=== PATIENT | male | born 1995 | race Caucasian/White ===

== ENCOUNTER 2025-03-25 16:41 | Inpatient (IN) | payer OTHER ==
[~2025-03-25] VITALS: Ht 182.9 cm; Wt 81.8 kg
[2025-03-25 21:29] LABS: PLATELET COUNT (AUTO) 200 K/uL (150-450); RED BLOOD CELL COUNT(AUTO) 4.59 MIL/uL (4.50-5.90); RED CELL DISTRIBUTION WIDTH 12.6 % (11.5-14.5); WHITE BLOOD COUNT (AUTO) 8.0 K/uL (4.5-11.0)
[2025-03-25 21:40] LABS: SODIUM SERUM 141 mmol/L (136-145)
[2025-03-25 21:41] LABS: CALCIUM, TOTAL 8.9 mg/dL (8.8-10.5); CREATININE 0.80 mg/dL (0.60-1.30); GLOMERULAR FILTR. RATE CALC > 60 mL/min (>60); GLUCOSE,RANDOM 88 mg/dL (70-110); UREA NITROGEN, BLOOD 11 mg/dL (7-18)
[2025-03-25 21:45] LABS: ASPARTATE AMINOTRANSFERASE 8.0 U/L (15-37); TOTAL PROTEIN, SERUM 6.2 g/dL (6.4-8.2)
[2025-03-26 01:10] LABS: COVID AG,FIA SOURCE NASAL SWAB
[2025-03-26 01:25] LABS: SARS-COV2 (COVID) ANTIGEN,FIA Negative (Negative)
[2025-03-26 05:26] VITALS: BP 98/61; PULSE 39; RESP 18; TEMP 97.7; O2SAT 100
[2025-03-26 06:00] VITALS: PULSE 42
[2025-03-26 07:53] VITALS: BP 96/64; PULSE 48; RESP 18; TEMP 97.8; O2SAT 100
[2025-03-26] MEDS ORDERED: BISACODYL 10 MG RECTAL RECTAL SUPPOSITORY PR PRN (08:00)
[2025-03-26] MEDS ORDERED: IPRATROPIUM BROMIDE 0.5 MG/2.5 ML NEB SOLUTION NEB PRN (08:00)
[2025-03-26] MEDS ORDERED: MAGNESIUM HYDROXIDE SUSPENSION 30 ML UDCUP PO PRN (08:00)
[2025-03-26] MEDS ORDERED: ZOLPIDEM TARTRATE 5 MG TABLET PO PRN (08:00)
[2025-03-26] MEDS ORDERED: ONDANSETRON HCL 4 MG/2 ML VIAL IVP PRN (08:00)
[2025-03-26] MEDS ORDERED: ALBUTEROL SULFATE 2.5 MG/0.5 ML NEB SOLUTION NEB PRN (08:00)
[2025-03-26] MEDS: HEPARIN SODIUM,PORCINE 5,000 UNITS/ML VIAL SQ SCH (08:28)
[2025-03-26] MEDS: PANTOPRAZOLE SODIUM 40 MG DR TABLET PO SCH (08:28)
[2025-03-26 09:37] LABS: APPEARANCE,URINE CLEAR (CLEAR); GLUCOSE, URINE (UA) NEGATIVE (NEGATIVE); LEUKOCYTE ESTERASE ,URINE NEGATIVE (NEGATIVE); NITRATE,URINE NEGATIVE (NEGATIVE); OCCULT BLOOD,URINE NEGATIVE (NEGATIVE); SPECIFIC GRAVITIY, URINE 1.016 (1.003-1.030)
[2025-03-26 10:15] VITALS: PULSE 55; RESP 18; O2SAT 99
[2025-03-26] MEDS ORDERED: SODIUM CHLORIDE 3% 15 ML NEB SOLUTION NEB ONE ×2 (10:36→20:52)
[2025-03-26 12:55] LABS: MTB PCR w/Rif. Resistance-SPUT NOT DETECTED (Not Detectd)
[2025-03-26 14:14] LABS: MTB PCR w/Rif. Resistance-SPUT NOT DETECTED (Not Detectd)
[2025-03-26 15:30] VITALS: BP 99/62; PULSE 81; RESP 19; TEMP 97.9; O2SAT 100
[2025-03-26 19:48] VITALS: BP 104/59; PULSE 48; RESP 18; TEMP 98.2; O2SAT 98
[2025-03-26] MEDS: ACETAMINOPHEN 325 MG TABLET PO PRN (20:32)
[2025-03-27 04:57] VITALS: BP 94/59; PULSE 46; RESP 18; TEMP 97.7; O2SAT 99
[2025-03-27 08:30] VITALS: BP 95/54; PULSE 56; RESP 18; O2SAT 100
[2025-03-27] MEDS: SODIUM CHLORIDE 0.9% 1,000 ML IV ONE (12:17)
[2025-03-27 18:05] VITALS: BP 112/64; PULSE 47; RESP 18; TEMP 98.1; O2SAT 99
[2025-03-27 19:35] VITALS: BP 103/57; PULSE 53; RESP 18; TEMP 98.1; O2SAT 99
[2025-03-28 04:20] VITALS: BP 101/58; PULSE 53; RESP 18; TEMP 97.7; O2SAT 100
[2025-03-28 08:10] VITALS: BP 106/57; PULSE 41; RESP 18; TEMP 98.2; O2SAT 100
[2025-03-28 20:55] VITALS: BP 103/60; PULSE 55; RESP 18; TEMP 98.1; O2SAT 99
[2025-03-29 04:00] VITALS: BP 104/65; PULSE 52; RESP 18; TEMP 97.5; O2SAT 100
[2025-03-29 08:15] VITALS: BP 102/71; PULSE 48; RESP 18; TEMP 97.3; O2SAT 99
[2025-03-29 10:06] LABS: QUANTIFERON+, Nil Value 0.08 IU/mL; QUANTIFERON+,Mitogen Value >10.00 IU/mL; QUANTIFERON+,TB1 Antigen Value 0.41 IU/mL; QUANTIFERON+,TB2 Antigen Value 0.56 IU/mL; QUANTIFERON, TB GOLD PLUS Positive (Negative)
[2025-03-29 17:05] VITALS: BP 112/68; PULSE 61; RESP 18; TEMP 97.7
[2025-03-29 19:38] VITALS: BP 96/74; PULSE 59; RESP 18; TEMP 98.2; O2SAT 100
[2025-03-30 05:52] VITALS: BP 97/60; PULSE 45; RESP 18; TEMP 98.1; O2SAT 97
[2025-03-30 08:17] VITALS: BP 101/67; PULSE 56; RESP 18; TEMP 97.5; O2SAT 98
[2025-03-30 15:44] VITALS: BP 102/55; PULSE 52; RESP 18; TEMP 97.7; O2SAT 96
[2025-03-30 19:44] VITALS: BP 114/54; PULSE 60; RESP 18; TEMP 97.5; O2SAT 98
[2025-03-31 04:07] VITALS: BP 98/58; PULSE 46; RESP 18; TEMP 97.9; O2SAT 99
[2025-03-31 09:00] VITALS: BP 100/58; PULSE 53; RESP 18; TEMP 97.7; O2SAT 100
[2025-03-31 20:23] VITALS: BP 101/53; PULSE 59; RESP 18; TEMP 97.5; O2SAT 100
[2025-04-01 04:33] VITALS: BP 99/56; PULSE 53; RESP 16; TEMP 98; O2SAT 100
[2025-04-01 08:00] VITALS: BP 106/61; PULSE 45; RESP 16; TEMP 97.2; O2SAT 100
[2025-04-01 20:02] VITALS: BP 106/58; PULSE 55; RESP 18; TEMP 98.8; O2SAT 100
[2025-04-02 04:52] VITALS: BP 109/58; PULSE 45; RESP 18; TEMP 98.6; O2SAT 100
[2025-04-02 08:02] VITALS: BP 102/64; PULSE 53; RESP 18; TEMP 98.4; O2SAT 100
[2025-04-02 08:53] LABS: PLATELET COUNT (AUTO) 176 K/uL (150-450); RED BLOOD CELL COUNT(AUTO) 4.86 MIL/uL (4.50-5.90); RED CELL DISTRIBUTION WIDTH 12.7 % (11.5-14.5); WHITE BLOOD COUNT (AUTO) 5.1 K/uL (4.5-11.0)
[2025-04-02 09:12] LABS: ASPARTATE AMINOTRANSFERASE 9 U/L (15-37); CALCIUM, TOTAL 8.9 mg/dL (8.8-10.5); CREATININE 0.81 mg/dL (0.60-1.30); GLOMERULAR FILTR. RATE CALC > 60 mL/min (>60); GLUCOSE,RANDOM 115 mg/dL (70-110); SODIUM SERUM 141 mmol/L (136-145); TOTAL PROTEIN, SERUM 6.6 g/dL (6.4-8.2); UREA NITROGEN, BLOOD 13 mg/dL (7-18)
[2025-04-02] MEDS: PYRAZINAMIDE 500 MG TABLET PO SCH (10:17)
[2025-04-02] MEDS: PYRIDOXINE HCL 50 MG TABLET PO SCH (10:17)
[2025-04-02] MEDS: ETHAMBUTOL HCL 400 MG TABLET PO SCH (10:17)
[2025-04-02] MEDS: ISONIAZID 300 MG TABLET PO SCH (10:17)
[2025-04-02 20:04] VITALS: BP 100/60; PULSE 59; RESP 18; TEMP 98.1; O2SAT 100
[2025-04-03 04:07] LABS: HEPATITIS B CORE IGM Negative (Negative); HEPATITIS C AB (EIA) Non Reactive (Non Reactive)
[2025-04-03 05:25] VITALS: BP 108/57; PULSE 57; RESP 18; TEMP 98.1; O2SAT 99
[2025-04-03 08:00] VITALS: BP 110/62; PULSE 55; RESP 19; TEMP 97.3; O2SAT 100
[2025-04-03 19:34] VITALS: BP 129/72; PULSE 60; RESP 18; TEMP 97.3; O2SAT 97
[2025-04-04 05:51] VITALS: BP 110/60; PULSE 75; RESP 18; TEMP 97.9; O2SAT 100
[2025-04-04 07:45] VITALS: BP 98/62; PULSE 51; RESP 18; TEMP 97.7; O2SAT 99
[2025-04-04 19:28] VITALS: BP 109/66; PULSE 63; RESP 18; TEMP 98.1; O2SAT 98
[2025-04-05 04:32] VITALS: BP 104/74; PULSE 67; RESP 18; TEMP 97.9; O2SAT 97
[2025-04-05 07:20] VITALS: BP 109/71; PULSE 64; RESP 18; TEMP 97.3; O2SAT 100
[2025-04-05 20:10] VITALS: BP 108/59; PULSE 55; RESP 18; TEMP 97.8; O2SAT 98
[2025-04-06 05:16] VITALS: BP 111/66; PULSE 56; RESP 18; TEMP 97.5; O2SAT 98
[2025-04-06 08:16] VITALS: BP 107/64; PULSE 52; RESP 18; TEMP 98.1; O2SAT 98
[2025-04-06 12:01] LABS: PLATELET COUNT (AUTO) 213 K/uL (150-450); RED BLOOD CELL COUNT(AUTO) 5.05 MIL/uL (4.50-5.90); RED CELL DISTRIBUTION WIDTH 12.8 % (11.5-14.5); WHITE BLOOD COUNT (AUTO) 6.6 K/uL (4.5-11.0)
[2025-04-06 12:13] LABS: ASPARTATE AMINOTRANSFERASE 11 U/L (15-37); CALCIUM, TOTAL 8.7 mg/dL (8.8-10.5); CREATININE 0.80 mg/dL (0.60-1.30); GLOMERULAR FILTR. RATE CALC > 60 mL/min (>60); GLUCOSE,RANDOM 84 mg/dL (70-110); SODIUM SERUM 143 mmol/L (136-145); TOTAL PROTEIN, SERUM 6.8 g/dL (6.4-8.2); UREA NITROGEN, BLOOD 13 mg/dL (7-18)
[2025-04-07 13:07] LABS: COCCIDIOIDES BY CF(UCDAVIS) Negative; COCCIDIOIDES IMMUNODIF-UCDAVIS Negative
== END 2025-04-06 20:30 | DRG 179 ==
LOC: EMS 16:41 → EDH 03-26 02:56 → UNDOADMIN 03-26 03:14 → 6N 03-26 05:16 → EDH 03-26 05:16
PROVIDERS: ADMIT Hospitalist; ATTEND Hospitalist
DX: A15.0 Tuberculosis of lung (principal); Z20.822 Contact with and (suspected) exposure to COVID-19; I95.9 Hypotension, unspecified; R00.1 Bradycardia, unspecified; R91.8 Other nonspecific abnormal finding of lung field; Z78.9 Other specified health status
CPT/HCPCS: 71045; 71250; 80048; 80053; 80074; 80076; 81003; 84439; 84443; 85025; 86403; 86480; 87015; 87206; 87389; 87556; 93005; 94640; 99285; J1644; J7030; 36415-L1; 36415-TC